=== PATIENT | female | born 1955 | race Caucasian/White ===

== ENCOUNTER 2017-06-15 02:11 | Emergency (ER) | payer OTHER ==
[~2017-06-15] VITALS: Ht 160 cm; Wt 57.7 kg
[~2017-06-15 02:11] MED LIST: Z.0.NO CURRENT MEDS
[2017-06-15 02:20] VITALS: BP 155/74; PULSE 64; RESP 16; TEMP 98.1; O2SAT 97
[2017-06-15 02:24] VITALS: BP 155/74; PULSE 64; RESP 16; TEMP 98.1; O2SAT 97
--- NOTE | 2017-06-15 02:36 | PD ---
HPI Chief Complaint: Complaint Time Seen by Provider: 02:34 Travel History International Travel<30 days: No Contact w/Intl Traveler<30days: No Traveled to known affect area: No History of Present Illness HPI 61-year-old female presents to the emergency department for one day of urinary frequency urgency dysuria and hematuria. No fever chills. No nausea vomiting. No upper respiratory tract infection symptoms no chest pain or shortness of breath. No flank pain. No vaginal discharge or vaginal bleeding. Patient is otherwise in good health voices no other concerns or complaints. PFSH Past Medical History Narrative Medical skin cancer; occasional alcohol use alcohol nursing notes reviewed Cancer: Yes (skin) Diabetes: No Glaucoma: No Hepatitis: No Hiatal Hernia: No Hypertension: No Thyroid Disease: No Past Surgical History Abdominal Surgery: No Cardiac Surgery: No Ear Surgery: No Endocrine Surgery: No Eye Surgery: No Genitourinary Surgery: No Gynecologic Surgery: No Oral Surgery: Yes (sinus surgery) Pacemaker: No Thoracic Surgery: No Social History Alcohol Use: Yes (wine at dinner) Tobacco Use: No Allergies-Medications (Allergen,Severity, Reaction): Coded Allergies: penicillin G (Verified Allergy, Severe, unknown as a child, 06/15/17) shellfish derived (Verified Allergy, Severe, except shrimp causes anaphylaxis, 06/15/17) Reported Meds & Prescriptions Reported Meds & Active Scripts Active Reported Premarin (Estrogens, Conjugated) 0.45 Mg Tab 0.45 Mg PO DAILY Nexium (Esomeprazole DR) 20 Mg Capdr 20 Mg PO DAILY Singulair (Montelukast Sodium) 10 Mg Tab 10 Mg PO HS Xyzal (Levocetirizine Dihydrochloride) 5 Mg Tablet 5 Mg PO DAILY Review of Systems Except as stated in HPI: all other systems reviewed are Neg Physical Exam Narrative GENERAL: Well-developed well-nourished female in no acute distress no respiratory distress SKIN: Warm and dry. HEAD: Normocephalic. EYES: No scleral icterus. No injection or drainage. NECK: Supple, trachea midline. No JVD or lymphadenopathy. CARDIOVASCULAR: Regular rate and rhythm without murmurs, gallops, or rubs. RESPIRATORY: Breath sounds equal bilaterally. No accessory muscle use. GASTROINTESTINAL: Abdomen soft, mild suprapubic pressure discomfort to direct palpation otherwise no tenderness no guarding or rebound, nondistended. MUSCULOSKELETAL: No cyanosis, or edema. BACK: Nontender without obvious deformity. No CVA tenderness. Data Data Last Documented VS Vital Signs Date Time Temp Pulse Resp B/P (MAP) Pulse Ox O2 Delivery O2 Flow Rate FiO2 06/15/17 02:24 98.1 64 16 155/74 (101) 97 Orders Orders Urinalysis - C+S If Indicated (06/15/17 02:34) Urine Culture (06/15/17 02:37) Ciprofloxacin (Cipro) (06/15/17 03:30) Phenazopyridine (Pyridium) (06/15/17 03:30) Labs Laboratory Tests Test 06/15/17 02:37 Urine Color RED Urine Turbidity CLOUDY Urine pH 6.5 Urine Specific [place] 1.025 Urine Protein 100 mg/dL Urine Glucose (UA) NEG mg/dL Urine Ketones TRACE mg/dL Urine Occult Blood LARGE Urine Nitrite NEG Urine Bilirubin NEG Urine Leukocyte Esterase LARGE Urine RBC INNUM /hpf Urine WBC INNUM /hpf Urine Squamous Epithelial Cells > 8 /hpf Urine Bacteria MOD /hpf Microscopic Urinalysis Comment CULTURE INDICATED MDM Medical Decision Making Medical Screen Exam Complete: Yes Emergency Medical Condition: Yes Medical Record Reviewed: Yes Interpretation(s) UA: Positive leukocyte Estrace positive white blood cells positive red blood cells positive moderate bacteria culture indicated Differential Diagnosis UTI, hemorrhagic cystitis, dysuria Narrative Course urine specimen collected and sent for resulting; patient noted to have mildly elevated blood pressure Will obtain subsequent blood pressures Diagnosis Primary Impression: UTI (urinary tract infection) Referrals: Primary Care Physician call for appointment Patient Instructions: General Instructions Additional Instructions: Increase fluid hydration Complete course of antibiotic Follow-up with primary care provider Return to the emergency for free concerns or change condition Take acetaminophen/Tylenol as needed for fever 100.4F or greater Med/Other Pt SpecificInfo: Prescription(s) given Scripts Ciprofloxacin (Cipro) 500 Mg Tab 500 MG PO BID for Infection, #14 TAB 0 Refills Prov: Christa Yancey MD 06/15/17 Phenazopyridine (Pyridium) 100 Mg Tab 100 MG PO Q8H Y for DYSURIA, #6 TAB 0 Refills Prov: Christa Yancey MD 06/15/17 Disposition: 01 DISCHARGE HOME Condition: Stable Christa Yancey MD Jun 15, 2017 02:36
[2017-06-15 02:47] LABS: BLOOD, URINE LARGE (NEG); GLUCOSE,URINE NEG (NEG); KETONE, URINE TRACE mg/dL (NEG); NITRITE,URINE NEG (NEG); PH, URINE 6.5 (5.0-8.5)
[2017-06-15 03:00] LABS: BACTERIA, URINE MOD /hpf; COMMENT (UR) CULTURE INDICATED; CULTURE IF INDICATED CULTURE INDICATED; RBC, URINE INNUM /hpf (0-3); SQUAMOUS EPITHELIAL CELL URINE > 8 /hpf (0-5); URINE COLOR RED (YELLW/STRAW); WBC, URINE INNUM /hpf (0-5)
[2017-06-15] MEDS ORDERED: LEVO1TAB50 PO (03:10)
[2017-06-15] MEDS ORDERED: NEXI20CA PO (03:12)
[2017-06-15] MEDS ORDERED: MONT10TA2 PO (03:12)
[2017-06-15] MEDS ORDERED: PREM0.45 PO (03:12)
[2017-06-15] MEDS ORDERED: CIPR-9 PO (03:30)
[2017-06-15] MEDS ORDERED: PHENAZOPYRIDINE HCL 100 MG TAB PO ONE (03:30)
[2017-06-15] MEDS ORDERED: PHEN0.4T PO (03:30)
[2017-06-15] MEDS ORDERED: CIPROFLOXACIN 500 MG TAB PO ONE (03:30)
[2017-06-15 03:46] VITALS: BP 136/75
== END 2017-06-15 03:55 | disposition home or self-care (01) ==
LOC: PHED 02:11
DX: N39.0 Urinary tract infection, site not specified (principal); Z85.828 Personal history of other malignant neoplasm of skin
CPT/HCPCS: 81001; 87077; 87086; 87186; 99284